=== PATIENT | male | born 1990 | race African-American/Black ===

== ENCOUNTER 2016-10-29 12:36 | Emergency (ER) | payer MEDICAID, OTHER ==
[~2016-10-29] VITALS: Ht 165.1 cm; Wt 53.5 kg
[~2016-10-29 12:36] MED LIST: CORTIS10A AU; Z.0.NO CURRENT MEDS
[2016-10-29 12:41] VITALS: BP 130/80; PULSE 102; RESP 20; TEMP 97.9; O2SAT 97
--- NOTE | 2016-10-29 12:42 | PD ---
Physical Exam Time Seen by Provider: 12:41 Narrative 26 y/o male here for evaluation of hematuria for 2 days. endorses mild dysuria. Denies abdominal pain, n/v, flank pain. Vital signs reviewed. Seen at triage desk. Awaiting bed placement. Data Data Last Documented VS Vital Signs Date Time Temp Pulse Resp B/P Pulse Ox O2 Delivery O2 Flow Rate FiO2 10/29/16 12:41 97.9 102 20 130/80 97 Room Air Orders Urinalysis - C+S If Indicated (10/29/16 12:42) Gc And Chlamydia Pcr (10/29/16 12:44) MDM Medical Record Reviewed: Yes Supervised Visit with ZAIRA: No Aaron Pedraza Oct 29, 2016 12:42
[2016-10-29 13:19] LABS: BACTERIA, URINE OCC /hpf; BLOOD, URINE MOD (NEG); COMMENT (UR) CULTURE INDICATED; CULTURE IF INDICATED CULTURE INDICATED; GLUCOSE,URINE NEG (NEG); KETONE, URINE NEG (NEG); MUCUS URINE FEW /lpf (OCC); NITRITE,URINE NEG (NEG); SQUAMOUS EPITHELIAL CELL URINE <1 /hpf (0-5); URINE COLOR YELLOW (YELLW/STRAW)
[2016-10-29] MEDS ORDERED: MACR100C2 PO (13:40)
--- NOTE | 2016-10-29 13:40 | PD ---
HPI Chief Complaint: Complaint Time Seen by Provider: 13:25 Travel History International Travel<30 days: No Contact w/Intl Traveler<30days: No Traveled to known affect area: No History of Present Illness HPI 26-year-old male presents emergency department for evaluation of hematuria 2 days. He reports dysuria, frequency hematuria starting approximately 2 days ago. He denies fever or chills. He reports one other episode which she believes was a urinary tract infection "years ago". He denies penile discharge , penile lesions, testicular pain, abdominal pain, flank pain. He reports no possibility of an STD. [facility] Past Medical History Medical History: Denies Significant Hx Social History Alcohol Use: No Tobacco Use: No Substance Use: No Allergies-Medications (Allergen,Severity, Reaction): Coded Allergies: No Known Allergies (Verified , 10/29/16) Reported Meds & Prescriptions Reported Meds & Active Scripts Active Review of Systems Except as stated in HPI: all other systems reviewed are Neg General / Constitutional: No: Fever Eyes: No: Visual changes HENT: No: Headaches Cardiovascular: No: Chest Pain or Discomfort Respiratory: No: Shortness of Breath Gastrointestinal: No: Abdominal Pain Genitourinary: Positive: Urgency, Frequency, Dysuria, Hematuria Skin: No Rash Physical Exam Narrative GENERAL: Alert, well-appearing male SKIN: Focused skin assessment warm/dry. HEAD: Atraumatic. Normocephalic. EYES: Pupils equal and round. No scleral icterus. No injection or drainage. ENT: No nasal bleeding or discharge. Mucous membranes pink and moist. NECK: Trachea midline. No JVD. CARDIOVASCULAR: Regular rate and rhythm. No murmur appreciated. RESPIRATORY: No accessory muscle use. Clear to auscultation. Breath sounds equal bilaterally. GASTROINTESTINAL: Abdomen soft, non-tender, nondistended. Hepatic and splenic margins not palpable. No CVA tenderness. MUSCULOSKELETAL: No obvious deformities. No clubbing. No cyanosis. No edema. NEUROLOGICAL: Awake and alert. No obvious cranial nerve deficits. Motor grossly within normal limits. Normal speech. PSYCHIATRIC: Appropriate mood and affect; insight and judgment normal. Data Data Last Documented VS Vital Signs Date Time Temp Pulse Resp B/P Pulse Ox O2 Delivery O2 Flow Rate FiO2 10/29/16 12:41 97.9 102 20 130/80 97 Room Air Orders Urinalysis - C+S If Indicated (10/29/16 12:42) Gc And Chlamydia Pcr (10/29/16 12:44) Urine Culture (10/29/16 12:45) Labs Laboratory Tests Test 10/29/16 12:45 Urine Color YELLOW Urine Turbidity HAZY Urine pH 6.0 Urine Specific [place] 1.007 Urine Protein TRACE mg/dL Urine Glucose (UA) NEG mg/dL Urine Ketones NEG mg/dL Urine Occult Blood MOD Urine Nitrite NEG Urine Bilirubin NEG Urine Urobilinogen LESS THAN 2.0 MG/DL Urine Leukocyte Esterase LARGE Urine RBC 4 /hpf Urine WBC /hpf Urine WBC Clumps FEW Urine Squamous Epithelial <1 /hpf Cells Urine Bacteria OCC /hpf Urine Mucus FEW /lpf Microscopic Urinalysis Comment CULTURE INDICATED MDM Medical Decision Making Medical Screen Exam Complete: Yes Emergency Medical Condition: Yes Differential Diagnosis UTI, urethritis, nephrolithiasis, other Narrative Course 26-year-old male presents emergency department for evaluation of dysuria and hematuria 2 days. He denies fever or chills, flank pain, abdominal pain. He denies any penile discharge and/or lesions. He reports there is no possibility of STD. Patient's urine is positive for infection he will be treated for UTI. Return precautions discussed. Patient verbalizes understanding. Diagnosis Primary Impression: UTI (urinary tract infection) Qualified Code: N30.01 - Acute cystitis with hematuria Referrals: Primary Care Physician Additional Instructions: Take antibiotics as prescribed. Stay well hydrated by drinking plenty of fluids. Follow-up with her primary care doctor for reevaluation. Return to the emergency department if he developed new or worsening symptoms such as fever, chills, nausea vomiting or severe back pain Scripts Nitrofurantoin Monohydrate Macrocrystals (Macrobid)100 Mg [id number] Mg PO BID #14 CAP Ref 0 Prov:Eva Shaw 10/29/16 Disposition: 01 DISCHARGE HOME Condition: Stable Eva Shaw Oct 29, 2016 13:40
[2016-10-29 16:40] LABS: CHLAMYDIA PCR DETECTED (NOT DETECT); NEISSERIA PCR NOT DETECTED (NOT DETECT)
== END 2016-10-29 14:23 | disposition home or self-care (01) ==
LOC: NEPD 12:36
DX: N30.01 Acute cystitis with hematuria (principal); B96.20 Unspecified Escherichia coli [E. coli] as the cause of diseases classified elsewhere
CPT/HCPCS: 81001; 87077; 87086; 87186; 87491; 87591; 99283